=== PATIENT | male | born 1955 | race Caucasian/White ===

== ENCOUNTER 2022-10-21 21:23 | Observation (INO) | payer MEDICARE, SELFPAY ==
[2022-10-21] VITALS (16 sets, daily range): BP systolic 116–129; BP diastolic 64–72; PULSE 57–88; RESP 16–36; O2SAT 94–100
--- NOTE | ~2022-10-21 | XR_ITS ---
EXAMINATION: XR chest 1V portable Exam Date/Time: 10/21/2022 21:27 [employer] COMMER[employer] CONSULTANT HISTORY: SOA Comparison: Multiple exams from 02/20/2013, CT abdomen and pelvis 02/20/2013. RESULT: Lines, tubes, and devices: Surgical staple lines in the right upper lung. Lungs and pleura: Diffuse reticular opacities with indistinct vessels and cuffing. Cardiomediastinal silhouette: Stable. Other: No acute osseous or upper abdominal finding. IMPRESSION: Pulmonary findings may represent interstitial edema in the appropriate clinical context. Reviewed, dictated and finalized at location K. PHERE COMMERCE CONSULTANT
--- NOTE | ~2022-10-21 | CT_ITS ---
EXAMINATION: CT brain wo con DATE: 10/22/2022 00:11 INDICATION: Altered mental state TECHNIQUE: Computed tomography (CT) of the head was performed without intravenous contrast. The mA wa s adjusted according to patient size. Iterative reconstruction technique was employed. Exam dose: 60 5.33 mGy-cm total exam DLP. COMPARISON: None FINDINGS: Bilateral carotid siphon internal carotid artery calcifications. There is nonspecific dimin ished attenuation cerebral white matter, likely due to chronic small vessel ischemic changes. Chronic right basal ganglia lacunar infarct. No other cerebrovascular accident is evident. Moderate cerebral and cerebellar volume loss. No intracranial mass lesion or hemorrhage, midline shif t or mass effect. No subdural or epidural hematoma. The mastoid air cells and included paranasal sinuses are normally developed and aerated. No fracture or bone destruction of the cranial vault. IMPRESSION: Chronic right basal ganglia lacunar infarct Cerebral atherosclerosis and chronic small vessel ischemic changes of the cerebral white matter No acute intracranial finding Reviewed, dictated and finalized at Location A. Reviewed, dictated and finalized at location A. UITER MANAGER IMPRESSION: Chronic right basal ganglia lacunar infarct Cerebral atherosclerosis and chronic small vessel ischemic changes of the cereb ral white matter No acute intracranial finding
--- NOTE | ~2022-10-21 | CT_ITS ---
EXAMINATION: CTA chest PE protocol DATE: 10/22/2022 00:12 INDICATION: Shortness of breath. Positive d-dimer. TECHNIQUE: Computed tomography angiography (CTA) of the chest was performed with 100 mL Omnipaque-350 intravenous contrast timed to evaluate the pulmonary arteries. Coronal maximum intensity projection 3D-reconstructions were created by the technologist. Automated exposure control and iterative reconst ruction technique were employed. Exam dose: 527.68 mGy-cm total exam DLP. COMPARISON: October 21, 2022 portable AP chest FINDINGS: There is diagnostic contrast enhancement of pulmonary arteries and no evidence of pulmonary embolism. Heart size is within normal limits. Trace pericardial fluid. Coronary artery calcifications. This thoracic aortic and great vessel atherosclerotic calcification. No thoracic aortic aneurysm or d issection. No hilar or mediastinal mass lesion or lymphadenopathy. Prominent bullous emphysema. Partial right lung resection. No pulmonary infiltrate or consolidation o r suspicious pulmonary mass lesion. No suspicious osteolytic or osteoblastic lesions. IMPRESSION: Bullous emphysema; no evidence of pulmonary embolism Reviewed, dictated and finalized at Location [facility]. Reviewed, dictated and finalized at location A. NK PIT OPERATOR
--- NOTE | 2022-10-21 21:29 | ECG_ITS ---
Measurements Intervals [place] Rate: 90 P: 84 MT: 254 QRS: 24 QRSD: 131 T: 68 QT: 343 QTc: 420 Interpretive Statements SINUS RHYTHM WITH FIRST DEGREE AV BLOCK INTRAVENTRICULAR CONDUCTION DELAY [130+ ms QRS DURATION] BASELINE ARTIFACT PRESENT NO PREVIOUS ECG AVAILABLE FOR COMPARISON Electronically Signed On 10-22-2022 16:16:43 ENTERTAINMENT MUSICIAN by Rebecca Khan M.D.
[2022-10-21 21:39] LABS: Basophils Absolute Auto 0.1 K/mm3 (0.0-0.1); Basophils Percent Auto 0.8 % (0.2-1.2); Eosinophils Absolute Auto 0.6 K/mm3 (0-0.3); Hematocrit 44.7 % (42.0-52.0); Hemoglobin 14.8 g/dL (14.0-18.0); Immature Granulocyte Absolute 0.08 K/mm3 (0.00-0.031); Immature Granulocyte Percent A 0.7 % (0-0.5); Lymphocytes Absolute Auto 5.68 K/mm3 (0.9-3.2); Lymphocytes Percent Auto 47.3 % (18.3-44.2); Mean Corpuscular HGB Conc 33.1 g/dl (32-36); Mean Corpuscular Hemoglobin 34.3 pg (26-34); Mean Corpuscular Volume 103.7 fl (80-100); Mean Platelet Volume 10.3 fl (7.4-10.4); Monocytes Absolute Auto 1.3 K/mm3 (0.1-0.6); Monocytes Percent Auto 10.6 % (2.6-8.5); Neutrophils Absolute Auto 4.3 K/mm3 (1.3-6.7); Neutrophils Percent Auto 35.6 % (45.5-73.1); Nucleated Red Blood Cells Perc 0.2 % (0.0-0.2); Platelet Count Result 292 k/mm3 (150-375); Red Blood Count 4.31 M/mm3 (4.6-6.20); Red Cell Distribution Width 13.1 % (11.5-14.5)
[2022-10-21] MEDS: MAGNESIUM SULF 2 GM/WATER 50ML 2 GM/50 ML BAG IVPB (21:39)
[2022-10-21 21:42] LABS: Alveolar/Arterial O2 Gradient 150.7 mmHg; Base Excess ABG -4.1 mEq/l (+/-2.0); Fractional Inspired Oxygen 100 %; HCO3 ABG 28.7 mEq/l (22.0-26.0); Oxygen Content ABG 22.3 %vol (16.0-22.0); Oxygen Saturation ABG 99.7 % (95.0-100.0); Oxyhemoglobin 98.1 % THb (90.0-100.0); PO2 FiO2 Ratio Arterial Blood 4.66 %; Total Hemoglobin 15.3 g/dL (12.0-18.0)
[2022-10-21 21:44] LABS: pH ABG 7.092 (7.350-7.450)
[2022-10-21 21:45] LABS: Device NON-INVASIVE VENT; Modified Allen's Test Unable to perform; Non-Invasive Expiratory Pressure 6 CMH2O; Non-Invasive Inspiratory Pressure 12 CMH2O; Non-Invasive Vent Rate 16 /MIN; PCO2 ABG 96.3 mmHg (35.0-45.0); Site Drawn RIGHT RADIAL
[2022-10-21 21:49] LABS: Platelet Estimate Adequate (Adequate)
[2022-10-21 21:50] LABS: Atypical Lymphocytes Present; Schistocytes None Seen (NORMAL)
[2022-10-21 21:51] LABS: Alanine Aminotransferase 63 U/L (6-50); Albumin Level 4.5 g/dL (3.5-5.1); Alkaline Phosphatase 50 U/L (38-126); Anion Gap 10 mmol/L (8-16); Aspartate Amino Transferase 73 U/L (17-59); Bilirubin,Total 0.4 mg/dL (0.2-1.3); Blood Urea Nitrogen 14 mg/dL (9-20); Calcium 8.6 mg/dL (8.4-10.2); Carbon Dioxide 29 mmol/L (22-30); Chloride 99 mmol/L (98-107); Estimated CRCL calculation 61 ml/min; Estimated Glomerular Filt Rate > 60; Glucose 206 mg/dL (65-110); Potassium 4.1 mmol/L (3.4-5.0); Sodium 138 mmol/L (137-145)
[2022-10-21 21:54] LABS: INR 1.1; Partial Thromboplastin Time 27.2 SECONDS (22.3-36.8); Prothrombin Time 13.7 Seconds (11.1-14.7)
[2022-10-21] MEDS: ALBUTEROL SULFATE NEB 2.5 MG/3 ML INH 15 MG INHALATION (21:58)
[2022-10-21] MEDS: IPRATROPIUM BR 0.02% INH SOLN 0.5 MG/2.5 ML VIAL 1.5 MG INHALATION (21:59)
[2022-10-21 22:02] LABS: NT Pro B Type Natriuretic Pept 516 pg/mL (19.9-100); Troponin I < 0.012 ng/mL (0.000-0.034)
[2022-10-21 22:10] LABS: D Dimer 0.89 ug/mL (<0.48)
--- NOTE | 2022-10-21 22:32 | ED.SOB ---
HPI - SOB/Dyspnea General Chief Complaint: Shortness of Breath/Dyspnea <Santiago Carr MD - Last Filed: 10/21/22 22:39> Stated Complaint: DIFFICULTY IN BREATHING <Santiago Carr MD - Last Filed: 10/21/22 22:39> Time Seen by Provider: 10/21/22 21:27 <Santiago Carr MD - Last Filed: 10/21/22 22:39> History of Present Illness HPI Narrative: Patient is a 67-year-old male with history of COPD who presents ER with shortness of breath. EMS arrived at the house to find him on his knees on the ground speaking 1 word sentences. They started an updraft and placed him on CPAP. Patient then stopped speaking to them and is just staring off into space. Patient received some Solu-Medrol in route as well. Patient not responding to sternal rub but will respond to IV poke. After about 15 minutes patient began acting normal and answering questions. He does have diminished lung sounds. He cannot give any additional history other than to report that he is feeling improved. <Santiago Carr MD - Last Filed: 10/21/22 22:39> Related Data Allergies/Adverse Reactions: Allergies Allergy/AdvReac Type Severity Reaction Status Date / Time No Known Allergies Allergy Mild Unverified 02/20/13 03:42 <Santiago Carr MD - Last Filed: 10/21/22 22:39> Review of Systems Review of Systems: ROS unobtainable: Yes unobtainable due to medical condition <Santiago Carr MD - Last Filed: 10/21/22 22:39> PMFSH Past Medical History Medical History: Medical History (Updated 10/22/22 @ 01:36 by Jaquan Moeller MD) COPD (chronic obstructive pulmonary disease) <Santiago Carr MD - Last Filed: 10/21/22 22:39> Surgical History Surgical History: Surgical History (Updated 10/21/22 @ 22:36 by Santiago Carr MD) S/P partial lobectomy of lung <Santiago Carr MD - Last Filed: 10/21/22 22:39> Exam Narrative: GENERAL: Ill-appearing, well-nourished, and in severe distress. HEAD: Normocephalic, atraumatic. EYES: PERRL and EOMI. ENT: Mucous membranes moist. Dentures upper and lower present. NECK: Supple. CHEST: Diminished lung sounds throughout with increased respiratory rate and diffuse wheezing. Poor air movement noted. HEART: Regular rate and rhythm. Normal peripheral pulses. ABDOMEN: Soft, nontender, nondistended. EXTREMITIES: Normal range of motion. No edema. SKIN: Warm, dry, no rash. NEURO: Patient awake but not particular alert not responding to questions. Intermittently responds to noxious stimuli.. PSYCH: Normal mood and affect. <Santiago Carr MD - Last Filed: 10/21/22 22:39> Course Course Emergency Course: Patient was signed out from Dr. Carr pending CTA of the chest. CTA showed no evidence of pulmonary embolism patient's blood gas improved substantially the pH is now 7.39. Case was discussed with the hospitalist and the patient was accepted to the hospitalist service. <Jaquan Moeller MD - Last Filed: 10/22/22 01:37> Vital Signs Vital signs: Vital Signs Pulse Rate 88 10/21/22 21:21 Respiratory Rate 28 H 10/21/22 21:21 Pulse Oximetry 94 10/21/22 21:21 Oxygen Delivery BiPAP 10/21/22 21:21 Pulse Rate 71 10/22/22 00:31 Respiratory Rate 17 10/22/22 00:31 Blood Pressure 123/66 10/22/22 00:31 Pulse Oximetry 97 10/22/22 00:34 Oxygen Delivery Nasal Cannula 10/22/22 00:34 Oxygen Flow Rate 3 10/22/22 00:34 <Santiago Carr MD - Last Filed: 10/21/22 22:39> Vital Signs Pulse Rate 88 10/21/22 21:21 Respiratory Rate 28 H 10/21/22 21:21 Pulse Oximetry 94 10/21/22 21:21 Oxygen Delivery BiPAP 10/21/22 21:21 Pulse Rate 71 10/22/22 00:31 Respiratory Rate 17 10/22/22 00:31 Blood Pressure 123/66 10/22/22 00:31 Pulse Oximetry 97 10/22/22 00:34 Oxygen Delivery Nasal Cannula 10/22/22 00:34 Oxygen Flow Rate 3 10/22/22 00:34 <Jaquan Moeller MD - Last Filed: 02
[2022-10-22] VITALS (30 sets, daily range): BP systolic 123–137; BP diastolic 66–73; PULSE 55–89; RESP 12–27; TEMP 36.4; O2SAT 94–100; BMI 26.8
--- NOTE | 2022-10-22 00:44 | ECHO_ITS ---
Patient Info Name: Judd Fleming Age: 67 years : 1955 Gender: Male Ht: 68 in Wt: 198 lbs BSA: 2.10 m2 HR: 61 bpm BP: 129 / 67 mmHg Heart Rhythm: Sinus Rhythm Exam Date: 10/22/2022 11:38 AM Exam Location: [facility] Patient Status: Outpatient Admit Date: 10/22/2022 Staff Ordering Physician: Elsa Polk M.A., MD Case Work Aide: Geoffrey Vigil RDCS, RT Attending Provider: Elsa Polk M.A., MD Referring Physician: Cholo HUANG; Exam Type: CA echo doppler color flow Study Info Indications I50.9 - Heart failure, unspecified Complete two-dimensional, color flow and Doppler transthoracic echocardiogram is performed. Strain analysis performed. Summary 1. Complete two-dimensional, color flow and Doppler transthoracic echocardiogram is performed. 2. Left ventricular chamber dimension is normal. 3. Left ventricular systolic function is normal, estimated at 65-70%. No regional wall motion abnormalities. 4. There is mildly increased left ventricular wall thickness. 5. The left ventricular diastolic function is grade I diastolic dysfunction. 6. Right ventricular systolic function is normal. 7. The mitral valve annulus is mildly calcified. 8. There is trace mitral valve regurgitation. 9. There is trace tricuspid valve regurgitation. 10. There is trivial pericardial effusion. Left Ventricle Left ventricular chamber dimension is normal. Left ventricular systolic function is normal, estimated at 65-70%. No regional wall motion abnormalities. There is mildly increased left ventricular wall thickness. The left ventricular diastolic function is grade I diastolic dysfunction. Right Ventricle Right ventricular chamber dimension is normal. Right ventricular systolic function is normal. Left Atria Left atrial chamber dimension is normal. Right Atria Right atrial chamber dimension is normal. Atrial Septum Intact interatrial septum visualized by color flow imaging. Aortic Valve The aortic valve is not well visualized. There is no aortic valve stenosis. There is no aortic valve regurgitation. Pulmonic Valve The pulmonic valve is not well visualized. Mitral Valve There is no mitral valve stenosis. There is trace mitral valve regurgitation. The mitral valve annulus is mildly calcified. Tricuspid Valve There is trace tricuspid valve regurgitation. Pericardium/Pleural There is trivial pericardial effusion. Inferior Vena Cava Normal inferior vena cava with >50% collapse upon inspiration consistent with normal right atrial pressure, 3 mmHg. Aorta The aortic root size at the sinus of Valsalva is normal. Left Ventricular Outflow Tract Name Value Normal LVOT 2D LVOT Diameter 2.1 cm LVOT Doppler LVOT Peak Gradient 6 mmHg LVOT Mean Gradient 3 mmHg LVOT VTI 27 cm LVOT VTI/AV VTI Ratio 0.7 LVOT Stroke Volume 89 ml LVOT CO 5.4 l/min LVOT CI 2.6 l/mi
--- NOTE | 2022-10-22 00:47 | PM.IMHP ---
H&P: HPI History of Present Illness Date/Time: 10/22/22 00:47 Chief Complaint: 67 years old male with past medical history of hypertension diabetes mellitus COPD presented to the hospital shortness of breath rapidly worsening associated with cough and wheezing multiple times a day denies fever or chills patient became short of breath even at rest 1 presented to the ER patient was not able to finish sentences and was slow to response pH was 7 CO2 was in 90s patient was hypoxic was started on BiPAP with significant improvement of mental status and oxygenation BiPAP was discontinued patient tolerated nasal cannula well shortness of breath has significantly improved patient was admitted to the hospital for further evaluation of an treatment of COPD exacerbation probable CHF exacerbation and CO2 narcosis Review of Systems Review of Systems: Twelve system review was done negative except above [facility] Past Medical History Medical History (Updated 10/22/22 @ 00:49 by Elsa Polk MD) COPD (chronic obstructive pulmonary disease) Surgical History Surgical History (Updated 10/21/22 @ 22:36 by Santiago Carr MD) S/P partial lobectomy of lung Meds Home Medications and Allergies Allergies Allergy/AdvReac Type Severity Reaction Status Date / Time No Known Allergies Allergy Mild Unverified 02/20/13 03:42 Vital Signs Vital Signs - 24 hr 10/21/22 21:21 10/21/22 21:41 10/21/22 21:45 Pulse Rate 88 88 87 Respiratory Rate 28 H 36 H Blood Pressure Pulse Oximetry 94 100 Oxygen Delivery BiPAP BiPAP Oxygen Flow Rate 10/21/22 22:12 10/21/22 22:15 10/21/22 21:57 Pulse Rate 71 71 73 Respiratory Rate 24 H 24 H 27 H Blood Pressure Pulse Oximetry 100 100 Oxygen Delivery BiPAP Oxygen Flow Rate 10/21/22 22:00 10/21/22 22:15 10/21/22 22:30 Pulse Rate 70 69 Respiratory Rate 26 H 23 H Blood Pressure 122/72 Pulse Oximetry 100 100 100 Oxygen Delivery Oxygen Flow Rate 10/21/22 22:31 10/21/22 22:53 10/21/22 23:12 Pulse Rate 61 77 Respiratory Rate 16 22 H Blood Pressure 129/72 116/70 Pulse Oximetry 98 100 Oxygen Delivery Oxygen Flow Rate 10/22/22 00:34 10/21/22 23:09 10/21/22 23:15 Pulse Rate 57 L 62 Respiratory Rate 19 18 Blood Pressure Pulse Oximetry 97 100 100 Oxygen Delivery Nasal Cannula Oxygen Flow Rate 3 10/21/22 23:16 10/21/22 23:46 10/21/22 23:48 Pulse Rate 57 L 61 59 L Respiratory Rate 18 24 H 24 H Blood Pressure 121/68 120/64 Pulse Oximetry 100 96 96 Oxygen Delivery Oxygen Flow Rate 10/22/22 00:19 10/22/22 00:30 10/22/22 00:31 Pulse Rate 73 77 71 Respiratory Rate 26 H 12 17 Blood Pressure 123/66 Pulse Oximetry 97 97 95 Oxygen Delivery Oxygen Flow Rate Exam Narrative: GENERAL: Well appearing, well-nourished, non-toxic, in no acute distress. HEAD: Normocephalic, atraumatic. NECK: Supple. No adenopathy, no masses. RESPIRATORY: Bilateral wheezing crackles CARDIOVASCULAR: Regular rate and rhythm without murmurs, rubs, or gallops. Peripheral pulses 2+ and equal bilaterally. ABDOMINAL: Soft, nontender, nondistended, no hepatosplenomegaly. Normoactive BS. MUSCULOSKELETAL: Moves all extremities. Strength/ROM intact without gross deformities or TTP. No edema. No calf tenderness. No chest wall tenderness palpation. SKIN: Warm, dry, normal color. No rashes. NEURO: A&O X3. Speech clear. Cranial nerves II-XII grossly intact. Steady gait. No ataxic movements. PSYCHIATRIC: Appropriate mood and affect. Normal interaction. H&P: Results Labs Labs: Short CBC 10/21/22 Range/Units 21:32 WBC 12.0 H (4.5-10.0) K/mm3 Hgb 14.8 (14.0-18.0) g/dL Hct 44.7 (42.0-52.0) % Plt Count 292 (150-375) k/mm3 BMP 10/21/22 21:32 Sodium 138 Potassium 4.1 Chloride 99 Carbon Dioxide 29 BUN 14 Creatinine 1.10 Glucose 206 H Calcium 8.6 Cardiac Enzymes 10/21/22 Range/Units 21:32 Troponin I <
[2022-10-22 01:04] LABS: Basophils Percent Auto 0.3 % (0.2-1.2); Eosinophils Absolute Auto 0.1 K/mm3 (0-0.3); Eosinophils Percent Auto 0.4 % (0-4.4); Hematocrit 40.2 % (42.0-52.0); Hemoglobin 13.7 g/dL (14.0-18.0); Immature Granulocyte Absolute 0.07 K/mm3 (0.00-0.031); Immature Granulocyte Percent A 0.6 % (0-0.5); Lymphocytes Absolute Auto 1.15 K/mm3 (0.9-3.2); Lymphocytes Percent Auto 9.7 % (18.3-44.2); Mean Corpuscular HGB Conc 34.1 g/dl (32-36); Mean Corpuscular Hemoglobin 33.9 pg (26-34); Mean Corpuscular Volume 99.5 fl (80-100); Mean Platelet Volume 10.3 fl (7.4-10.4); Monocytes Absolute Auto 0.4 K/mm3 (0.1-0.6); Monocytes Percent Auto 2.9 % (2.6-8.5); Neutrophils Absolute Auto 10.2 K/mm3 (1.3-6.7); Neutrophils Percent Auto 86.1 % (45.5-73.1); Platelet Count Result 246 k/mm3 (150-375); Red Blood Count 4.04 M/mm3 (4.6-6.20); Red Cell Distribution Width 13.2 % (11.5-14.5); White Blood Count 11.9 K/mm3 (4.5-10.0)
[2022-10-22 01:13] LABS: Alanine Aminotransferase 74 U/L (6-50); Alkaline Phosphatase 57 U/L (38-126); Anion Gap 4 mmol/L (8-16); Aspartate Amino Transferase 91 U/L (17-59); Bilirubin,Total 0.4 mg/dL (0.2-1.3); Blood Urea Nitrogen 16 mg/dL (9-20); Calcium 8.2 mg/dL (8.4-10.2); Carbon Dioxide 32 mmol/L (22-30); Chloride 98 mmol/L (98-107); Estimated CRCL calculation 67 ml/min; Estimated Glomerular Filt Rate > 60; Glucose 130 mg/dL (65-110); Sodium 134 mmol/L (137-145)
[2022-10-22 01:15] LABS: Alveolar/Arterial O2 Gradient 100.6 mmHg; Base Excess ABG 2.6 mEq/l (+/-2.0); Fractional Inspired Oxygen 32 %; HCO3 ABG 28.2 mEq/l (22.0-26.0); Oxygen Saturation ABG 94.5 % (95.0-100.0); Oxyhemoglobin 91.9 % THb (90.0-100.0); PO2 ABG 72.6 mmHg (80.0-100.0); PO2 FiO2 Ratio Arterial Blood 2.27 %; Total Hemoglobin 14.7 g/dL (12.0-18.0); pH ABG 7.396 (7.350-7.450)
[2022-10-22 01:16] LABS: Device NASAL CANNULA; Modified Allen's Test Pass; Site Drawn RIGHT RADIAL
[2022-10-22] MEDS: cefTRIAXone 2 GM in SODIUM CHLORIDE 0.9% IV 100 ML 200 ML IVPB (01:23)
[2022-10-22 01:51] LABS: Procalcitonin 0.1 ng/mL
[2022-10-22 02:52] LABS: Influenza A QL RT-PCR Negative (Negative); Influenza B QL RT-PCR Negative (Negative); SARS-CoV-2 RNA PCR Negative
[2022-10-22] MEDS: IPRATROPIUM BR 0.02% INH SOLN 0.5 MG/2.5 ML VIAL INHALATION ×2 (03:13→09:54)
[2022-10-22] MEDS: ALBUTEROL SULFATE NEB 2.5 MG/3 ML INH INHALATION ×2 (03:13→09:54)
[2022-10-22] MEDS: methylPREDNISolone SOD SUCC 40 MG VIAL IV PUSH (06:23)
[2022-10-22 08:01] LABS: Glucose Point of Care 156 mg/dl (65-105)
[2022-10-22] MEDS: carvediloL 25 MG TABLET BY MOUTH (08:54)
[2022-10-22] MEDS: guaiFENesin 12 HR 600 MG TABCR PO (08:56)
[2022-10-22] MEDS: FAMOTIDINE 20 MG TABLET PO (08:56)
[2022-10-22] MEDS: hydroCHLOROthiazide 12.5 MG CAPSULE PO (08:56)
[2022-10-22] MEDS: lisinopriL 20 MG TABLET PO (08:56)
[2022-10-22] MEDS: FUROSEMIDE INJ 40 MG/4 ML VIAL IV PUSH (08:56)
[2022-10-22] MEDS: ROSUVASTATIN 10 MG TABLET 20 MG BY MOUTH (08:56)
[2022-10-22] MEDS: metFORMIN HCL XR 500 MG TAB.SR.24H 1000 MG PO (08:56)
--- NOTE | 2022-10-22 10:54 | PM.DS ---
DS: Admitting Diagnosis Discharge Date October 22, 2022 Admitting Diagnosis COPD exacerbation DS: Discharge Diagnosis Discharge Diagnosis (1) COPD exacerbation: Code(s): J44.1 - Chronic obstructive pulmonary disease with (acute) exacerbation Status: Acute Assessment and Plan: Associated with acute hypoxemic respiratory failure IV Rocephin nebulizer treatment IV Solu-Medrol Improved (2) Hypertension: Code(s): I10 - Essential (primary) hypertension Status: Acute Assessment and Plan: Pending reconciliation of home medication (3) Diabetes mellitus: Code(s): E11.9 - Type 2 diabetes mellitus without complications Status: Acute Assessment and Plan: Hold metformin started insulin sliding scale (4) Acute hypoxemic respiratory failure: Code(s): J96.01 - Acute respiratory failure with hypoxia Status: Acute Assessment and Plan: Acute hypoxemic hypercapnic respiratory failure secondary to COPD exacerbation associated with probable acute and of chronic diastolic CHF exacerbation Management as above Improved Status post BiPAP Currently on oxygen Repeat ABG pending (5) Pulmonary edema: Code(s): J81.1 - Chronic pulmonary edema Status: Acute Assessment and Plan: Probably related to acute and of chronic diastolic CHF exacerbation echo pending IV diuresis (6) Acute metabolic encephalopathy: Code(s): G93.41 - Metabolic encephalopathy Status: Acute Assessment and Plan: Secondary to CO2 retention CO2 narcosis COPD exacerbation CHF exacerbation CT scan of the head negative resolved DS: Summary Hospital Course Hospital Course: 67-year-old male came in with shortness of breath and wheezing. Found to have COPD exacerbation. CT scan did not show any pneumonia or consolidation. Patient was sent home on prednisone and also cefdinir as he did improve with IV Rocephin in the hospital. Nonetheless patient quit smoking 10 years ago. Patient be discharged home. Time Spent with Patient Time attestation: Total time spent providing and/or coordinating discharge services: Exam Narrative: GENERAL: Well appearing, well-nourished, non-toxic, in no acute distress. HEAD: Normocephalic, atraumatic. NECK: Supple. No adenopathy, no masses. RESPIRATORY: Bilateral wheezing crackles CARDIOVASCULAR: Regular rate and rhythm without murmurs, rubs, or gallops. Peripheral pulses 2+ and equal bilaterally. ABDOMINAL: Soft, nontender, nondistended, no hepatosplenomegaly. Normoactive BS. MUSCULOSKELETAL: Moves all extremities. Strength/ROM intact without gross deformities or TTP. No edema. No calf tenderness. No chest wall tenderness palpation. SKIN: Warm, dry, normal color. No rashes. NEURO: A&O X3. Speech clear. Cranial nerves II-XII grossly intact. Steady gait. No ataxic movements. PSYCHIATRIC: Appropriate mood and affect. Normal interaction. DS: Data Data Completed and Pending Labs on day of discharge: Labs from last 24 hours 10/22/22 10/22/22 10/22/22 07:53 02:06 01:04 WBC RBC Hgb Hct MCV MCH MCHC RDW Plt Count MPV Immature Gran % (Auto) Neut % (Auto) Lymph % (Auto) [place] % (Auto) Eos % (Auto) Baso % (Auto) Lymph # (Auto) [place] # (Auto) Eos # (Auto) Baso # (Auto) Abs Immat Gran (auto) Absolute Neuts (auto) Absolute Nucleated RBC Nucleated RBC % Atypical Lymphocytes Platelet Estimate Schistocytes PT INR APTT D-Dimer Puncture Site Right radial ABG pH 7.396 ABG pCO2 47.0 H ABG pO2 72.6 L ABG PO2/FiO2 Ratio 2.27 ABG HCO3 28.2 H ABG O2 Saturation 94.5 L ABG O2 Content 19.0 ABG Base Excess 2.6 A-a Gradient 100.6 Oxyhemoglobin 91.9 Total Hemoglobin 14.7 O2 Delivery Device Nasal cannula O2 Liters/Min 3.0 Vent Rate FiO2 32 Expiratory Pressure Inspiratory Pressure Sodium P
[2022-10-22 11:38] LABS: Glucose Point of Care 294 mg/dl (65-105)
[2022-10-22] MEDS: INSULIN ASPART (*BKC) 100 UNITS/ML SUB-Q (11:38)
== END 2022-10-22 12:20 | disposition home or self-care (01) ==
LOC: ANHED 10-22 01:36 → ANH3MEDSUR 10-22 09:58
PROVIDERS: Emergency Medicine; Admitting Provider Internal Medicine; Emergency Provider Emergency Medicine; PCP Internal Medicine Geriatric Medicine; Visit Provider Chiropractor
DX: J44.1 Chronic obstructive pulmonary disease with (acute) exacerbation (principal); I10 Essential (primary) hypertension; E11.9 Type 2 diabetes mellitus without complications; J96.01 Acute respiratory failure with hypoxia; J81.0 Acute pulmonary edema; G93.41 Metabolic encephalopathy; I45.4 Nonspecific intraventricular block; Z90.2 Acquired absence of lung [part of]; Z20.822 Contact with and (suspected) exposure to COVID-19; I67.2 Cerebral atherosclerosis; R90.82 White matter disease, unspecified
CPT/HCPCS: 36415; 36600; 70450; 71045; 71275; 80053; 82805; 82948; 83880; 84145; 84484; 85025; 85380; 85610; 85730; 87636; 93005; 93306; 94002; 94640; 96365; 96367; 96375; 99285; A9270; G0378; J0696; J1815; J1940; J2920; J2930; J3475; Q9967

== ENCOUNTER 2024-05-22 16:16 | Emergency (ER) | payer MEDICARE, SELFPAY ==
[2024-05-22] VITALS (10 sets, daily range): BP systolic 153–166; BP diastolic 72–81; PULSE 67–87; RESP 16–20; TEMP 36.4; O2SAT 94–96
--- NOTE | ~2024-05-22 | CT_ITS ---
CT abdomen pelvis w con Ordering provider: Keli Courtney MD History: 69 years Male with . acute urinary retention s/p cook; leukocytosis . Comparison: February 20, 2013 Technique: CT abdomen and pelvis with IV and without oral contrast. Automated exposure control and it erative reconstruction technique were employed. The dose-length product was 580.34 mGy-cm. 100 mL Omn ipaque 350 was given IV. Findings: VISUALIZED LOWER CHEST: Normal. UPPER ABDOMINAL ORGANS: Liver: Normal. Gallbladder: Normal. Spleen: Normal. Stomach/duodenum: Normal. Pancreas: Normal. Adrenals: Slightly prominent left adrenal gland. Kidneys: Tiny cysts in the left and right kidneys. PELVIC ORGANS: The bladder is underfilled with Cook's catheter. Thickened wall of the urinary bladde r is also noted. BOWEL AND MESENTERY: Colon: No evidence of diverticulitis. Fecal material seen in the rectum and sigmoid colon suggestive of constipation. Postoperative changes in the right lower quadrant suggestive of appendectomy. Small Bowel: Normal. No obstruction. Peritoneum/mesentery: No free air or free fluid. No mesenteric lymphadenopathy. RETROPERITONEUM: Mild atheromatous disease of the abdominal aorta. No retroperitoneal lymphadenopat hy. MUSCULOSKELETAL: Superficial soft tissues: Small defect in the anterior abdominal wall with fat content. Otherwise, Th e superficial soft tissues are normal. Bones: Age appropriate degenerative changes of the spine. IMPRESSION: 1. No evidence of diverticulitis or intestinal obstruction. 2. Underfilled urinary bladder with Cook catheter in the bladder with thickened wall. 3. Constipation. Reviewed, dictated and finalized at location A. IMPRESSION: 1. No evidence of diverticulitis or intestinal obstruction. 2. Underfilled urinary bladder with Cook catheter in the bladder with thicken ed wall. 3. Constipation.
--- NOTE | 2024-05-22 16:55 | ED.ABDPAIN ---
HPI - Abdominal Pain General Chief Complaint: Abdominal Pain Stated Complaint: abd pain Time Seen by Provider: 05/22/24 16:29 Source: patient and family (son) Mode of arrival: ambulatory Limitations: no limitations History of Present Illness HPI narrative: Patient presents with reported inability to urinate or have a bowel movement. This has never happened before. Does ot follow with a GI doctor or urologist. No underlyign GI or liver issues. Initial triage complaint was stated to be abdominal pain but patient deneis this, even stating he didn't have significant abdominal pain or distention despite not being able to urinate prior to the Monahan being inserted. He thinks he possibly urinated last night. He has been having some voice change recently and was evaluated by ENT who recommended he be put on famotidine. No other new medications. No fever or back/flank pain. Had a smoothie for breakfast and some M&Ms. Appetite has been ok. PCP is Dr Cordero. Related Data Home Medications Medication Instructions Recorded Confirmed albuterol sulfate 90 mcg/actuation 90 mcg inhalation Q4H PRN Wheezing 10/22/22 10/22/22 aerosol inhaler carvedilol 25 mg tablet 25 mg BID 10/22/22 10/22/22 lisinopril 20 1 tablet DAILY 10/22/22 10/22/22 mg-hydrochlorothiazide 12.5 mg tablet metformin 500 mg tablet,extended 500 mg PO DAILY 10/22/22 10/22/22 release 24 hr rosuvastatin 20 mg tablet 20 mg DAILY 10/22/22 10/22/22 Allergies Allergy/AdvReac Type Severity Reaction Status Date / Time No Known Allergies Allergy Mild Unverified 05/22/24 16:36 [facility] Past Medical History Medical History (Updated 05/23/24 @ 00:00 by Michelle Cornell) COPD (chronic obstructive pulmonary disease) Surgical History Surgical History (Updated 10/21/22 @ 22:36 by Santiago Carr MD) S/P partial lobectomy of lung Social History Social History Social History: Has a son Smoking status: Former smoker Tobacco type: cigarettes Alcohol intake: current Drinks per week: 35 Substance use: never Lack of Transportation: No Lack of Food: Never True Current Housing: I Have Housing Concerned About Future Housing: No Difficulty Paying Gas/Electric Bills: No Difficulty Paying for Meds: No Currently Unemployed: No Education: Bachelor's Degree Difficulty w/ Childcare or Family Care: No Spiritual care concerns: No Exam Narrative: GENERAL: Well-appearing, well-nourished, and in no acute distress. HEAD: Normocephalic, atraumatic. EYES: Non injected, non icteric ENT: Nares clear, no rhinorrhea or epistaxis. NECK: Supple. CHEST: Speaking in full sentences. No respiratory distress. HEART: Regular rate and rhythm. . ABDOMEN: Soft, nondistended. Non tender to palpation throughout. No rigidity/guarding. Not peritoneal. : Monahan in place, draining yellow urine, 1400cc in the bag at the time of my exam. EXTREMITIES: Normal range of motion. No lower extremity edema. SKIN: Warm, dry, no rash. NEURO: No focal deficits. Alert and oriented x3. PSYCH: Normal mood and affect. Course Vital Signs Vital signs: Vital Signs Temperature 97.6 F 05/22/24 16:19 Pulse Rate 67 05/22/24 16:19 Respiratory Rate 16 05/22/24 16:19 Blood Pressure 153/76 H 05/22/24 16:19 Pulse Oximetry 96 05/22/24 16:19 Temperature 97.6 F 05/22/24 16:19 Pulse Rate 71 05/22/24 19:32 Respiratory Rate 16 05/22/24 19:32 Blood Pressure 166/72 H 05/22/24 19:32 Pulse Oximetry 95 05/22/24 19:32 MDM - Abdominal Pain MDM Narrative Medical decision making narrative: Patient presents with inability to urinate or have a bowel movement. In the emergency department he is afebrile with acceptable vital signs (mild elevation of systolic blood pressure). >700cc on bladder scan by rn prior to insertion of Monahan catheter. Patient denies abdominal pain, even prior to placement. N
[2024-05-22 17:11] LABS: Add Urine Microscopic? NO; Appearance Urine Clear (Clear); Bacteria Urine None Seen /hpf; Bilirubin Urine Negative (Negative); Blood Urine Non-Hemolyzed Trace (Negative); Color Urine Yellow (Yellow); Glucose Urine UA 3+ mg/dL (Negative); Ketones Urine Negative (Negative); Leukocyte Esterase Ur Negative LEU/UL (Negative); Nitrate Urine Negative (Negative); Non Pathogenic Casts 0-2; Protein Urine Negative (Negative); Specific Grav Ur 1.021 (1.001-1.035); Squamous Epithelial Cell Urine None Seen /hpf (Few); Urobilinogen Urine 0.2 mg/dL (<2.0); WBC Urine 0-5 /hpf (0-3); pH Urine 6.5 (5.0-9.0)
[2024-05-22 17:18] LABS: Basophils Absolute Auto 0.1 K/mm3 (0.0-0.1); Basophils Percent Auto 0.6 % (0.2-1.2); Eosinophils Absolute Auto 0.1 K/mm3 (0-0.3); Eosinophils Percent Auto 0.7 % (0-4.4); Hematocrit 44.4 % (42.0-52.0); Hemoglobin 15.3 g/dL (14.0-18.0); Immature Granulocyte Absolute 0.06 K/mm3 (0.00-0.031); Immature Granulocyte Percent A 0.4 % (0-0.5); Lymphocytes Absolute Auto 1.75 K/mm3 (0.9-3.2); Lymphocytes Percent Auto 11.4 % (18.3-44.2); Mean Corpuscular HGB Conc 34.5 g/dl (32-36); Mean Corpuscular Hemoglobin 33.8 pg (26-34); Monocytes Absolute Auto 0.9 K/mm3 (0.1-0.6); Monocytes Percent Auto 5.5 % (2.6-8.5); Neutrophils Absolute Auto 12.5 K/mm3 (1.3-6.7); Neutrophils Percent Auto 81.4 % (45.5-73.1); Platelet Count Result 254 k/mm3 (150-375); Red Blood Count 4.53 M/mm3 (4.6-6.20); Red Cell Distribution Width 13.4 % (11.5-14.5); White Blood Count 15.4 K/mm3 (4.5-10.0)
[2024-05-22 17:33] LABS: Anion Gap 14 mmol/L (4-12); Blood Urea Nitrogen 18 mg/dL (9-20); Calcium 9.2 mg/dL (8.4-10.2); Carbon Dioxide 22 mmol/L (22-30); Chloride 98 mmol/L (98-107); Estimated CRCL calculation 81 ml/min; Estimated Glomerular Filt Rate > 60; Glucose 149 mg/dL (65-110); Potassium 3.9 mmol/L (3.4-5.0); Sodium 134 mmol/L (137-145)
== END 2024-05-22 19:33 | disposition home or self-care (01) ==
PROVIDERS: Emergency Medicine; Emergency Provider Student in an Organized Health Care Education/Training Program; PCP Internal Medicine Geriatric Medicine
DX: R33.9 Retention of urine, unspecified (principal); R31.29 Other microscopic hematuria; R73.9 Hyperglycemia, unspecified; K59.00 Constipation, unspecified; J44.9 Chronic obstructive pulmonary disease, unspecified; Z87.891 Personal history of nicotine dependence; Z90.2 Acquired absence of lung [part of]; Z79.84 Long term (current) use of oral hypoglycemic drugs; Z79.899 Other long term (current) drug therapy
CPT/HCPCS: 36415; 51702; 74177; 80048; 81003; 85025; 99284; Q9967